=== PATIENT | female | born 1985 | race Asian ===

== ENCOUNTER 2019-01-06 14:38 | Emergency (ER) | payer MEDICAID ==
[~2019-01-06] VITALS: Ht 144.8 cm; Wt 49.0 kg
[2019-01-06 14:43] VITALS: BP_SYST 107
[2019-01-06] MEDS ORDERED: FAMOTIDINE PF 20 MG/2 ML VIAL IVP ONE (15:00)
[2019-01-06] MEDS ORDERED: methylPREDNISolone SOD SUCC/PF 62.5 MG/ML VIAL IVP ONE (15:00)
[2019-01-06] MEDS ORDERED: EPINEPHrine 1 MG/ML AMP SUBCUT ONE (15:00)
[2019-01-06] MEDS ORDERED: NACL 0.9% 1,000 ML IV ONE (15:00)
[2019-01-06] MEDS ORDERED: DIPHENHYDRAMINE INJ 50 MG/ML VIAL IVP ONE (15:00)
[2019-01-06 16:26] VITALS: BP_SYST 110
== END 2019-01-06 16:26 | disposition home or self-care (01) ==
LOC: SED 14:38
DX: T78.40XA Allergy, unspecified, initial encounter (principal); R03.0 Elevated blood-pressure reading, without diagnosis of hypertension; X58.XXXA Exposure to other specified factors, initial encounter
CPT/HCPCS: 96372; 96374; 96375; 99283; J0171; J1200; J2930; J3490; J7030

== ENCOUNTER 2019-08-12 14:24 | Emergency (ER) | payer MEDICAID ==
[~2019-08-12] VITALS: Ht 147.3 cm; Wt 47.2 kg
[2019-08-12 14:37] VITALS: BP_SYST 119
--- NOTE | 2019-08-12 16:02 | NUR ---
Patient to ER bed 02 to gown for evaluation. Side rails up. Report given to SIXTO Vargas
--- NOTE | 2019-08-12 16:07 | NUR ---
Patient arrived in the ED c/o cough, fevers, and sore throat that started last Monday. Patient denied any fevers, nausea, vomiting, or chills. Patient is alert and oriented x4, respirations even and unlabored, speaking in full sentences, and ambulating with a steady gait. VSS, pain level 5/10. Informed of wait time. Instructed to notify ED staff for any changes in condition or worsening of symptoms. Patient verbalized understanding.
--- NOTE | 2019-08-12 17:15 | NUR ---
ER MELANIE Patino at bedside examining patient.
--- NOTE | 2019-08-12 17:18 | NUR ---
Patient given written and verbal discharge instructions and verbalizes understanding. ER MD discussed with patient the results and treatment provided. Patient in stable condition. ID arm band removed. Rx of Ibuprofen and Zpak given. Patient educated on pain management and to follow up with PMD. Pain Scale 0/10. Opportunity for questions provided and answered. Medication side effect fact sheet provided.
[2019-08-12 17:24] VITALS: BP_SYST 119
== END 2019-08-12 17:24 | disposition home or self-care (01) ==
LOC: SED 14:24
DX: R05 Cough (principal); R03.0 Elevated blood-pressure reading, without diagnosis of hypertension
CPT/HCPCS: 36415; 86710; 99283